=== PATIENT | male | born 1955 | race Caucasian/White ===

== ENCOUNTER 2024-01-19 13:12 | Inpatient (IN) | payer BC, MEDICARE, SELFPAY ==
[2024-01-19] VITALS (7 sets, daily range): BP systolic 132–152; BP diastolic 91–100; PULSE 72–80; RESP 16–19; TEMP 36.1–36.6; O2SAT 95–98; BMI 33.5; BMI 32.5
--- NOTE | 2024-01-19 13:27 | EDS_ITS ---
HPI <SELENA Nina - Last Filed: 01/19/24 15:31> History of Present Illness Chief Complaint: ETOH Intox Narrative Narrative: Patient is here for alcohol detox. His last drink was midnight on Monday, January 16. He typically drinks half a bottle of bourbon and 4-8 beers daily. He states he does not have symptoms of withdrawal yet but knows that it will get worse. He states he has done inpatient detox twice over the last year at [facility]. He has a chronic tremor which he states is familial but it might be a little bit worse today. He has no nausea, vomiting, diarrhea, chest pain or shortness of breath. No history of withdrawal seizures. He has extensive past medical history including HTN, HLD, DM2, DVT/PE on Eliquis, and aortic valve replacement. He denies smoking or recreational drug use. [facility] <SELENA Nina - Last Filed: 01/19/24 15:31> [facility] Medical History Alcohol abuse Aortic aneurysm CHF (congestive heart failure) COPD (chronic obstructive pulmonary disease) Diabetes Hernia Home Medications apixaban 5 mg tablet (Eliquis) 5 mg PO BID BLOOD THINNER 01/19/24 [History Last Taken 01/19/24] atorvastatin 40 mg tablet 40 mg PO QHS CHOLESTEROL 01/19/24 [History Last Taken 01/18/24] folic acid 1 mg tablet 1 mg PO DAILY SUPPLEMENT 01/19/24 [History Last Taken 01/19/24] furosemide 40 mg tablet 40 mg PO DAILY PRN FLUID RETENTION 01/19/24 [History Last Taken 01/19/24] glimepiride 4 mg tablet 4 mg PO BID BLOOD SUGAR 01/19/24 [History Last Taken 01/19/24] metformin 1,000 mg 24 hr tablet,extended release (gastric reten.) (Glumetza) 1,000 mg PO BID BLOOD SUGAR 01/19/24 [History Last Taken 01/19/24] metoprolol succinate 50 mg tablet,extended release 24 hr 50 mg PO BID BLOOD PRESSURE 01/19/24 [History Last Taken 01/19/24] Allergy/AdvReac Type Severity Reaction Status Date / Time No Known Allergies Allergy Verified 01/19/24 13:12 Surgical History Aortic valve replaced Social History Smoking Status: Former smoker ROS <SELENA Nina - Last Filed: 01/19/24 15:31> ROS ED ROS Narrative Constitutional: Negative for fever, chills, malaise. CVS: Negative for palpitations, chest pain, syncope. Respiratory: Negative for shortness of breath. GI: Negative for abdominal pain, nausea, vomiting, melena, hematochezia. EXAM <SELENA Nina - Last Filed: 01/19/24 15:31> Physical Exam Narrative Exam Narrative: CONST: Patient sitting in no acute distress. EYES: Normal inspection. NECK: Normal inspection. RESP: No respiratory distress, CTAB. CVS: Regular rate and rhythm, no murmur, no gallop. ABD: Soft and nontender, no guarding or rebound, nondistended. SKIN: Color normal, no rash, warm, dry, intact. EXTREMITIES: 3+ bilateral ankle edema, otherwise normal appearance of extremities. NEURO: Oriented x4. Mild fine tremor in extremities. PSYCH: Normal affect. Const Vital Signs: 01/19/24 13:13 01/19/24 13:12 01/19/24 13:26 Temperature 96.9 F L 98 F Temperature Source Temporal Axillary Pulse Rate 75 72 73 Respiratory Rate 16 18 19 H Blood Pressure 152/100 H 142/91 H 148/94 H Blood Pressure Mean 117 108 112 Pulse Ox 98 97 96 Oxygen Delivery Method Room Air Room Air Room Air <Dr. Guillermo Rae, DO - Last Filed: 01/19/24 16:43> Physical Exam Const Vital Signs: 01/19/24 13:13 01/19/24 13:12 01/19/24 13:26 Temperature 96.9 F L 98 F Temperature Source Temporal Axillary Pulse Rate 75 72 73 Respiratory Rate 16 18 19 H Blood Pressure 152/100 H 142/91 H 148/94 H Blood Pressure Mean 117 108 112 Pulse Ox 98 97 96 Oxygen Delivery Method Room Air Room Air Room Air MDM <SELENA Nina - Last Filed: 01/19/24 15:31> MDM MDM Narrative Medical decision making narrative: Patient is here for alcohol detox. Last drink about 36 hours ago, currently not symptomatic other than mild tremor. He appears well and nontoxic and is afebrile with normal vital signs. His cardiopulmonary exam is normal and abdomen is soft and nontender. He is neurologically intact. Labs show mild pancytopenia with WBC of 4.2, hemoglobin 12.7, platelet 75. Patient states he is aware he has CBC abnormalities and his primary care doctor has referred him to hematology. He has normal electrolytes and renal function. Glucose is 210 consistent with his diabetes. Total bilirubin is 3.3 but the rest of his LFTs are unremarkable. EKG is sinus rhythm with diffuse T wave inversions. Patient has no chest pain or shortness of breath and troponin is normal at 15. Alcohol and urine tox screens are negative. Patient remained stable while in the ED and case was discussed with the hospitalist for admission for alcohol detox. Lab Data Attestation: I reviewed the patient's lab results. Labs: Laboratory Results - last 24 hr 01/19/24 01/19/24 13:47 14:22 WBC 4.2 L RBC 3.82 L Hgb 12.7 L Hct 36.8 L MCV 96.3 H MCH 33.2 H MCHC 34.5 RDW Std Deviation 50.0 H RDW Coeff of Abraham 14.2 Plt Count 75 L MPV 10.3 Immature Gran % (Auto) 0.200 Neut % (Auto) 44.0 L Lymph % (Auto) 37.3 [place] % (Auto) 12.8 H Eos % (Auto) 4.3 Baso % (Auto) 1.4 H Absolute Neuts (auto) 1.8 L Absolute Lymphs (auto) 1.55 Nucleated RBC % 0 Platelet Estimate MOD DEC PT 23.9 H INR 2.2 Sodium 138 Potassium 3.7 Chloride 106 Carbon Dioxide 23.0 Anion Gap 9 BUN 9 Creatinine 0.84 Estim Creat Clear Calc 115.24 Est GFR (MDRD) Af Amer 117 Est GFR (MDRD) Non-Af 96 BUN/Creatinine Ratio 10.7 Glucose 210 H Calcium 8.6 Total Bilirubin 3.30 H AST 42 H ALT 40 Alkaline Phosphatase 97 Troponin I High Sens 15 Total Protein 7.0 Albumin 3.3 Globulin 3.7 Albumin/Globulin Ratio 0.9 Urine Opiates Screen NEGATIVE Urine Methadone Screen NEGATIVE Ur Barbiturates Screen NEGATIVE Ur Phencyclidine Scrn NEGATIVE Ur Amphetamines Screen NEGATIVE MDMA (Ecstasy) Screen NEGATIVE U Benzodiazepines Scrn NEGATIVE Urine Cocaine Screen NEGATIVE U Cannabinoids Screen NEGATIVE Ur Drug Screen Comment Ethyl Alcohol < 3.0 EKG Initial EKG: Comments: Normal sinus rhythm at 76 bpm Inverted T waves V2 through V6 No STEMI, no prior for comparison <Dr. Guillermo Rae, DO - Last Filed: 01/19/24 16:43> MDM MDM Narrative Medical decision making narrative: Patient is here for alcohol detox. Last drink about 36 hours ago, currently not symptomatic other than mild tremor. He appears well and nontoxic and is afebrile with normal vital signs. His cardiopulmonary exam is normal and abdomen is soft and nontender. He is neurologically intact. Labs show mild pancytopenia with WBC of 4.2, hemoglobin 12.7, platelet 75. Patient states he is aware he has CBC abnormalities and his primary care doctor has referred him to hematology. He has normal electrolytes and renal function. Glucose is 210 consistent with his diabetes. Total bilirubin is 3.3 but the rest of his LFTs are unremarkable. EKG is sinus rhythm with diffuse T wave inversions. Patient has no chest pain or shortness of breath and troponin is normal at 15. Alcohol and urine tox screens are negative. Patient remained stable while in the ED and case was discussed with the hospitalist for admission for alcohol detox. ED attending note: I evaluated the patient in conjunction with the CHUCK. I agree with his/her statements and above findings. I have personally performed a face to face assessment of the patient and have reviewed the CHUCK Note. I performed a substantive portion of the visit including all aspects of the following. I personally saw the patient performed chart review, physical exam, reviewed labs, imaging (if obtained), and formulated a treatment and management plan. This note was generated with [employer], Part of [employer] dictation software. It may contain incorrect words, spelling, and punctuation that were not noted in review of the chart prior to signing. Lab Data Labs: Laboratory Results - last 24 hr 01/19/24 01/19/24 13:47 14:22 WBC 4.2 L RBC 3.82 L Hgb 12.7 L Hct 36.8 L MCV 96.3 H MCH 33.2 H MCHC 34.5 RDW Std Deviation 50.0 H RDW Coeff of Abraham 14.2 Plt Count 75 L MPV 10.3 Immature Gran % (Auto) 0.200 Neut % (Auto) 44.0 L Lymph % (Auto) 37.3 [place] % (Auto) 12.8 H Eos % (Auto) 4.3 Baso % (Auto) 1.4 H Absolute Neuts (auto) 1.8 L Absolute Lymphs (auto) 1.55 Nucleated RBC % 0 Platelet Estimate MOD DEC PT 23.9 H INR 2.2 Sodium 138 Potassium 3.7 Chloride 106 Carbon Dioxide 23.0 Anion Gap 9 BUN 9 Creatinine 0.84 Estim Creat Clear Calc 115.24 Est GFR (MDRD) Af Amer 117 Est GFR (MDRD) Non-Af 96 BUN/Creatinine Ratio 10.7 Glucose 210 H Calcium 8.6 Total Bilirubin 3.30 H AST 42 H ALT 40 Alkaline Phosphatase 97 Troponin I High Sens 15 Total Protein 7.0 Albumin 3.3 Globulin 3.7 Albumin/Globulin Ratio 0.9 Urine Opiates Screen NEGATIVE Urine Methadone Screen NEGATIVE Ur Barbiturates Screen NEGATIVE Ur Phencyclidine Scrn NEGATIVE Ur Amphetamines Screen NEGATIVE MDMA (Ecstasy) Screen NEGATIVE U Benzodiazepines Scrn NEGATIVE Urine Cocaine Screen NEGATIVE U Cannabinoids Screen NEGATIVE Ur Drug Screen Comment Ethyl Alcohol < 3.0 Discharge Plan Dx/Rx/DC Orders Clinical Impression: Desire for detoxification, Alcohol abuse, Pancytopenia Disposition Disposition: Acute Care Hospital [facility] Discharge Date/Time: 01/19/24 16:05
--- NOTE | 2024-01-19 13:28 | ED.RN ---
NO OLD EKG
[2024-01-19 13:57] LABS: Absolute Lymphocyte Count 1.55 X10^3/uL (0.83-4.51); Absolute Neutrophil Count 1.8 X10^3/uL (2.0-7.7); Basophil# 0.06 X10^3/uL; Basophil% 1.4 % (0-1); Eosinophil# 0.18 X10^3/uL; Eosinophils% 4.3 % (0-5); Hematocrit 36.8 % (40-54); Hemoglobin 12.7 g/dL (13.0-16.5); Lymphocyte # 1.55 X10^3/ul (0.83-4.51); Lymphocyte % 37.3 % (19-41); Mean Corp Hgb Conc 34.5 g/dL (32-36); Mean Corpuscular Hgb 33.2 pg (27.0-32.0); Mean Corpuscular Volume 96.3 fL (80-94); Mean Platelet Vol. 10.3 fl (6.2-12.0); Monocyte# 0.53 X10^3/uL; Monocyte% 12.8 % (0-10); NRBC Flagged by Analyzer 0 % (0-5); Neutrophil # 1.82 X10^3/uL (2.7-7.7); POSITIVE COUNT YES; Platelet Count 75 K/mm3 (150-450); RBC Distribution Width CV 14.2 % (11.6-14.6); Red Blood Count 3.82 M/mm3 (4.6-6.2); White Blood Count 4.2 K/mm3 (4.4-11.0)
[2024-01-19 14:06] LABS: Alcohol, Blood (Medical)-Serum < 3.0 mg/dL
[2024-01-19 14:08] LABS: Differential Indicated SCAN CRITERIA MET
[2024-01-19 14:11] LABS: ALB/GLOB Ratio 0.9 RATIO (0.9-2.4); AST(SGOT) 42 U/L (15-37); Alanine Aminotransfer ALT/SGPT 40 U/L (16-61); Albumin, Serum 3.3 g/dL (3.2-5.0); Alkaline Phosphatase 97 U/L (45-117); Anion Gap 9 (5-15); BUN 9 mg/dL (7-18); BUN/Creat Ratio 10.7 RATIO (10-20); Calcium,Total 8.6 mg/dL (8.5-10.1); Chloride 106 mmol/L (98-107); Creatinine, Serum 0.84 mg/dL (0.70-1.30); EST Glomerular Filtration Rate 96 mL/min (>60); Est Glom Filt Rate - Afr Amer 117 mL/min (>60); Estimated Creatinine Clearance 115.24 ml/min; Globulin 3.7 g/dL (2.2-4.2); Glucose 210 mg/dL (74-106); Potassium 3.7 mmol/L (3.5-5.1); Sodium Level 138 mmol/L (136-145)
[2024-01-19 14:16] LABS: International Normalized Ratio 2.2; Prothrombin Time (Protime)PT. 23.9 SECONDS (11.7-14.9)
[2024-01-19 14:17] LABS: Troponin-I HS 15 pg/mL (3.0-78.0)
[2024-01-19 14:39] LABS: Amphetamine Urine VISTA NEGATIVE (<1000 ng/mL); Barbiturate Urine VISTA NEGATIVE (< 200 ng/mL); Benzodiazepine Urine VISTA NEGATIVE (< 200 ng/mL); Cocaine Urine VISTA NEGATIVE (< 300 ng/mL); Ecstacy Urine VISTA NEGATIVE (< 500 ng/mL); Methadone Urine VISTA NEGATIVE (< 300 ng/mL); PCP Urine VISTA NEGATIVE (< 25 ng/mL); THC Urine VISTA NEGATIVE (< 50 ng/mL); Vista UDS pH Range 7
[2024-01-19 14:46] LABS: Platelet Estimate MOD DEC (ADEQ)
--- NOTE | 2024-01-19 15:04 | HP.PCM.HOS_ITS ---
HPI - General HPI Narrative NIKHIL CALLE, is a 68 M who presents [facility] Medical History Alcohol abuse Aortic aneurysm CHF (congestive heart failure) COPD (chronic obstructive pulmonary disease) Diabetes Hernia Home Medications apixaban 5 mg tablet (Eliquis) 5 mg PO BID 01/19/24 [History Last Taken Unknown] atorvastatin 40 mg tablet 40 mg PO DAILY 01/19/24 [History Last Taken Unknown] furosemide 40 mg tablet 40 mg PO DAILY 01/19/24 [History Last Taken Unknown] glimepiride 4 mg tablet 4 mg PO BID 01/19/24 [History Last Taken Unknown] metformin 1,000 mg 24 hr tablet,extended release (gastric reten.) (Glumetza) 1,000 mg PO BID 01/19/24 [History Last Taken Unknown] metoprolol succinate 50 mg tablet,extended release 24 hr 50 mg PO BID 01/19/24 [History Last Taken Unknown] Allergy/AdvReac Type Severity Reaction Status Date / Time No Known Allergies Allergy Verified 01/19/24 13:12 Surgical History (Updated 01/19/24 @ 13:44 by Magdaleno Chirinos) Aortic valve replaced Social History Smoking Status: Never smoker Vital Signs Vital Signs Vital Signs: 01/19/24 13:13 01/19/24 13:12 01/19/24 13:26 Temperature 96.9 F L 98 F Temperature Source Temporal Axillary Pulse Rate 75 72 73 Respiratory Rate 16 18 19 H Blood Pressure 152/100 H 142/91 H 148/94 H Blood Pressure Mean 117 108 112 Pulse Ox 98 97 96 Oxygen Delivery Method Room Air Room Air Room Air Weight Weight: 261 lb 11.019 oz Body Mass Index (BMI) 33.5 Results Lab / Micro Data 01/19/24 13:47 01/19/24 13:47 Labs: Laboratory Results - last 24 hr 01/19/24 13:47: WBC 4.2 L, RBC 3.82 L, Hgb 12.7 L, Hct 36.8 L, MCV 96.3 H, MCH 33.2 H, MCHC 34.5, RDW Std Deviation 50.0 H, RDW Coeff of Abraham 14.2, Plt Count 75 L, MPV 10.3, Immature Gran % (Auto) 0.200, Neut % (Auto) 44.0 L, Lymph % (Auto) 37.3, Trigg % (Auto) 12.8 H, Eos % (Auto) 4.3, Baso % (Auto) 1.4 H, Absolute Neuts (auto) 1.8 L, Absolute Lymphs (auto) 1.55, Nucleated RBC % 0, Platelet Estimate MOD DEC, PT 23.9 H, INR 2.2, Sodium 138, Potassium 3.7, Chloride 106, Carbon Dioxide 23.0, Anion Gap 9, BUN 9, Creatinine 0.84, Estim Creat Clear Calc 115.24, Est GFR (MDRD) Af Amer 117, Est GFR (MDRD) Non-Af 96, BUN/Creatinine Ratio 10.7, Glucose 210 H, Calcium 8.6, Total Bilirubin 3.30 H, AST 42 H, ALT 40, Alkaline Phosphatase 97, Troponin I High Sens 15, Total Protein 7.0, Albumin 3.3, Globulin 3.7, Albumin/Globulin Ratio 0.9, Ethyl Alcohol < 3.0 01/19/24 14:22: Urine Opiates Screen NEGATIVE, Urine Methadone Screen NEGATIVE, Ur Barbiturates Screen NEGATIVE, Ur Phencyclidine Scrn NEGATIVE, Ur Amphetamines Screen NEGATIVE, MDMA (Ecstasy) Screen NEGATIVE, U Benzodiazepines Scrn NEGATIVE, Urine Cocaine Screen NEGATIVE, U Cannabinoids Screen NEGATIVE, Ur Drug Screen Comment Assessment & Plan Assessment/Plan PLAN: Plan Laboratory Results 01/19/24 13:47: WBC 4.2 L, RBC 3.82 L, Hgb 12.7 L, Hct 36.8 L, MCV 96.3 H, MCH 33.2 H, MCHC 34.5, RDW Std Deviation 50.0 H, RDW Coeff of Abraham 14.2, Plt Count 75 L, MPV 10.3, Immature Gran % (Auto) 0.200, Neut % (Auto) 44.0 L, Lymph % (Auto) 37.3, Trigg % (Auto) 12.8 H, Eos % (Auto) 4.3, Baso % (Auto) 1.4 H, Absolute Neuts (auto) 1.8 L, Absolute Lymphs (auto) 1.55, Nucleated RBC % 0, Platelet Estimate MOD DEC, PT 23.9 H, INR 2.2, Sodium 138, Potassium 3.7, Chloride 106, Carbon Dioxide 23.0, Anion Gap 9, BUN 9, Creatinine 0.84, Estim Creat Clear Calc 115.24, Est GFR (MDRD) Af Amer 117, Est GFR (MDRD) Non-Af 96, BUN/Creatinine Ratio 10.7, Glucose 210 H, Calcium 8.6, Total Bilirubin 3.30 H, AST 42 H, ALT 40, Alkaline Phosphatase 97, Troponin I High Sens 15, Total Protein 7.0, Albumin 3.3, Globulin 3.7, Albumin/Globulin Ratio 0.9, Ethyl Alcohol < 3.0 01/19/24 14:22: Urine Opiates Screen NEGATIVE, Urine Methadone Screen NEGATIVE, Ur Barbiturates Screen NEGATIVE, Ur Phencyclidine Scrn NEGATIVE, Ur Amphetamines Screen NEGATIVE, MDMA (Ecstasy) Screen NEGATIVE, U Benzodiazepines Scrn NEGATIVE, Urine Cocaine Screen NEGATIVE, U Cannabinoids Screen NEGATIVE, Ur Drug Screen Comment
--- NOTE | 2024-01-19 15:04 | PCM.HP.STD ---
HPI - General General Date of Admission: 01/19/24 Date of Service: 01/19/24 Chief Complaint: Chronic alcohol use disorder moderate HPI Narrative NIKHIL REAL, is a 68 M with history of chronic heart disease came to ED for mild alcohol withdrawal symptoms and wants medical stabilization. Patient is states he drinks one third of the bottle of whiskey and 4-8 bottles of beer on average day. He said he did not drink from October 72 December 29, 2023 and then he started drinking again. Patient has mild tremors otherwise does not feel anxiety or panic attack or nausea vomiting muscle cramps. He had aortic valve replacement, open heart surgery. He stated he also had abdominal aortic aneurysm. He was admitted couple months ago outside and was told that he has blood clot in the leg and pneumonia therefore he is on Eliquis 5 mg twice daily Labs reviewed. Patient has thrombocytopenia, in fact pancytopenia and has often appointment with quality improvement manager outside [facility] Medical History Alcohol abuse Aortic aneurysm CHF (congestive heart failure) COPD (chronic obstructive pulmonary disease) Diabetes Hernia Home Medications apixaban 5 mg tablet (Eliquis) 5 mg PO BID BLOOD THINNER 01/19/24 [History Last Taken 01/19/24] atorvastatin 40 mg tablet 40 mg PO QHS CHOLESTEROL 01/19/24 [History Last Taken 01/18/24] folic acid 1 mg tablet 1 mg PO DAILY SUPPLEMENT 01/19/24 [History Last Taken 01/19/24] furosemide 40 mg tablet 40 mg PO DAILY PRN FLUID RETENTION 01/19/24 [History Last Taken 01/19/24] glimepiride 4 mg tablet 4 mg PO BID BLOOD SUGAR 01/19/24 [History Last Taken 01/19/24] metformin 1,000 mg 24 hr tablet,extended release (gastric reten.) (Glumetza) 1,000 mg PO BID BLOOD SUGAR 01/19/24 [History Last Taken 01/19/24] metoprolol succinate 50 mg tablet,extended release 24 hr 50 mg PO BID BLOOD PRESSURE 01/19/24 [History Last Taken 01/19/24] Allergy/AdvReac Type Severity Reaction Status Date / Time No Known Allergies Allergy Verified 01/19/24 13:12 Surgical History Aortic valve replaced Social History Smoking Status: Never smoker ROS ROS Narrative Constitutional: Reports fatigue and weakness. No fever. HEENT: Reports systems reviewed and no addt'l complaints, except as documented Respiratory/Chest: COPD with chronic secondary to smoking. No acute shortness of breath or respiratory distress or wheezing. CVS: No acute chest pain or shortness of breath Gastrointestinal: Bowel movement regular. Denies coffee ground emesis, hematemesis or vomiting Genitourinary: Denies burning urination or new urinary tract symptoms Musculoskeletal: Bilateral lower extremity swelling. Denies acute joint pain or limited range of motion. No acute injury Neurologic: Denies seizure-like symptoms. skin: No ulcer. No rash Endocrinology: Reports systems reviewed and no addt'l complaints, except as documented Hematologic/Lymphatic: Reports systems reviewed and no addt'l complaints, except as documented Rest 14 ROS are negative except as mentioned in HPI Vital Signs Vital Signs Vital Signs: 01/19/24 13:13 01/19/24 13:12 01/19/24 13:26 Temperature 96.9 F L 98 F Temperature Source Temporal Axillary Pulse Rate 75 72 73 Respiratory Rate 16 18 19 H Blood Pressure 152/100 H 142/91 H 148/94 H Blood Pressure Mean 117 108 112 Pulse Ox 98 97 96 Oxygen Delivery Method Room Air Room Air Room Air Weight Weight: 261 lb 11.019 oz Body Mass Index (BMI) 33.5 Physical Exam Narrative General: Alert, Oriented x3, Cooperative. BMI 33.6 kg/m? HEENT: Atraumatic, PERRLA, EOMI, Normocephalic Oral: Oral mucosa dry. No Gingival or Mucosal Lesions/ Ulcerations Neck: Supple, No JVD, Negative Carotid Bruits Chest wall/Lungs: Air entry diminished in bilateral lung bases. No crepitation/rhonchi Cardiovascular: Regular rate, Regular Rhythm, Normal S1, Normal S2, No M/G/R Abdomen: Bowel Sounds Present, Soft, Non Tender, Non-Distended : No dysuria. No renal angle tenderness. No suprapubic tenderness. Extremities: Bilateral 3+ lower extremity edema, Capillary Refill Less than 3 Seconds Skin: No rashes, No breakdown Musculoskeletal: No Tenderness to Palpation of Joints or Extremities Neurological: Cranial nerves II-XII grossly intact, DTR 2+/4. No acute focal neurological deficit. Psych/Mental Status: Flat. Results Lab / Micro Data 01/19/24 13:47 01/19/24 13:47 Labs: Laboratory Results - last 24 hr 01/19/24 13:47: WBC 4.2 L, RBC 3.82 L, Hgb 12.7 L, Hct 36.8 L, MCV 96.3 H, MCH 33.2 H, MCHC 34.5, RDW Std Deviation 50.0 H, RDW Coeff of Abraham 14.2, Plt Count 75 L, MPV 10.3, Immature Gran % (Auto) 0.200, Neut % (Auto) 44.0 L, Lymph % (Auto) 37.3, [place] % (Auto) 12.8 H, Eos % (Auto) 4.3, Baso % (Auto) 1.4 H, Absolute Neuts (auto) 1.8 L, Absolute Lymphs (auto) 1.55, Nucleated RBC % 0, Platelet Estimate MOD DEC, PT 23.9 H, INR 2.2, Sodium 138, Potassium 3.7, Chloride 106, Carbon Dioxide 23.0, Anion Gap 9, BUN 9, Creatinine 0.84, Estim Creat Clear Calc 115.24, Est GFR (MDRD) Af Amer 117, Est GFR (MDRD) Non-Af 96, BUN/Creatinine Ratio 10.7, Glucose 210 H, Calcium 8.6, Total Bilirubin 3.30 H, AST 42 H, ALT 40, Alkaline Phosphatase 97, Troponin I High Sens 15, Total Protein 7.0, Albumin 3.3, Globulin 3.7, Albumin/Globulin Ratio 0.9, Ethyl Alcohol < 3.0 01/19/24 14:22: Urine Opiates Screen NEGATIVE, Urine Methadone Screen NEGATIVE, Ur Barbiturates Screen NEGATIVE, Ur Phencyclidine Scrn NEGATIVE, Ur Amphetamines Screen NEGATIVE, MDMA (Ecstasy) Screen NEGATIVE, U Benzodiazepines Scrn NEGATIVE, Urine Cocaine Screen NEGATIVE, U Cannabinoids Screen NEGATIVE, Ur Drug Screen Comment Assessment & Plan Assessment/Plan (1) Acute hyperactive alcohol withdrawal delirium: PLAN: Plan This 60-year-old gentleman came to ED to help from medical establishment chronic alcohol use dependence 1. Acute alcohol withdrawal syndrome with history of chronic alcohol use dependence and tolerance: Patient is being admitted to MedSurg floor. Patient on phenobarbital based order set along with other adjunctive medications gabapentin, Bentyl, Vistaril, clonidine, Klonopin as needed for alcohol withdrawal symptom control. Patient is on thiamine and folate acid. CIWA monitor. graphic manager consulted. Patient has abnormal liver test including total bilirubin 3.3 AST 42 since most likely chronic alcoholic hepatitis. Direct bilirubin ordered. RUQ Limited ultrasound ordered 2. Bilateral lower extremity swelling with history of aortic valve replacement and abdominal aortic aneurysm: Lasix 40 mg IV now and continue home Lasix 40 g daily. Continue metoprolol succinate. 3. Diabetes mellitus type 2: Patient on metformin and glimepiride at home. Held. Accu-Cheks and cover with sliding scale. Glucose in BMP is 210. Started on Lantus 10 units daily at bedtime. 4. Dyslipidemia: Atorvastatin 40 mg daily at bedtime. 5. History of DVT: Continue Eliquis but dose decreased because of severe thrombocytopenia platelet count 75,000. 6. Predominant thrombocytopenia but mild leukopenia and macrocytic chronic anemia: B12 and folic acid ordered. Rest admission. Patient has outside office appointment to see quality improvement manager. Living will/advanced directive/end of life care: Patient does not living will or advanced directive. His daughter Mrs. Neeta Real is power of insurance attorney for his health. After discussion of benefits/risks procedures involved with full code, DNR CC arrest and DNR CC, the patient opted for DNR CC arrest with no intubation Patient doesn't want artificial life support including intubation, tube feed, ventilator and/chest compression, central venous catheter, vasopressor and DC shock if needed Total time spent in [id number] encounter in discussion of advanced directive 17 minutes. Laboratory Results 01/19/24 13:47: WBC 4.2 L, RBC 3.82 L, Hgb 12.7 L, Hct 36.8 L, MCV 96.3 H, MCH 33.2 H, MCHC 34.5, RDW Std Deviation 50.0 H, RDW Coeff of Abraham 14.2, Plt Count 75 L, MPV 10.3, Immature Gran % (Auto) 0.200, Neut % (Auto) 44.0 L, Lymph % (Auto) 37.3, [place]born % (Auto) 12.8 H, Eos % (Auto) 4.3, Baso % (Auto) 1.4 H, Absolute Neuts (auto) 1.8 L, Absolute Lymphs (auto) 1.55, Nucleated RBC % 0, Platelet Estimate MOD DEC, PT 23.9 H, INR 2.2, Sodium 138, Potassium 3.7, Chloride 106, Carbon Dioxide 23.0, Anion Gap 9, BUN 9, Creatinine 0.84, Estim Creat Clear Calc 115.24, Est GFR (MDRD) Af Amer 117, Est GFR (MDRD) Non-Af 96, BUN/Creatinine Ratio 10.7, Glucose 210 H, Calcium 8.6, Total Bilirubin 3.30 H, AST 42 H, ALT 40, Alkaline Phosphatase 97, Troponin I High Sens 15, Total Protein 7.0, Albumin 3.3, Globulin 3.7, Albumin/Globulin Ratio 0.9, Ethyl Alcohol < 3.0 01/19/24 14:22: Urine Opiates Screen NEGATIVE, Urine Methadone Screen NEGATIVE, Ur Barbiturates Screen NEGATIVE, Ur Phencyclidine Scrn NEGATIVE, Ur Amphetamines Screen NEGATIVE, MDMA (Ecstasy) Screen NEGATIVE, U Benzodiazepines Scrn NEGATIVE, Urine Cocaine Screen NEGATIVE, U Cannabinoids Screen NEGATIVE, Ur Drug Screen Comment Charges/Coding Visit Charges Inpatient E&M: 83462 Init Hosp L3 Procedures Hospitalists Procedures: 76320 Advncd Care Plan 30 Min
[2024-01-19] MEDS: Furosemide 40 MG/4 ML Vial IV (15:37)
[2024-01-19 16:47] LABS: Bilirubin, Direct 0.48 mg/dL (0.00-0.30)
[2024-01-19] MEDS: Phenobarbital 32.4 MG Tablet 64.8 MG PO ×2 (16:58→20:34)
[2024-01-19] MEDS: Insulin Lispro 100 UNIT/ML INSULN.PEN SC ×2 (16:58→20:44)
[2024-01-19 17:11] LABS: Vitamin B12 301 pg/mL (211-911)
[2024-01-19 17:20] LABS: Bedside Glucose 194 mg/dL (74-106)
[2024-01-19] MEDS: APIXABAN 2.5 MG TABLET (WCH) PO (20:35)
[2024-01-19] MEDS: Metoprolol(XL)Succ 50 MG Tablet PO (20:39)
[2024-01-19] MEDS: Insulin Glargine-YFGN 100 UNIT/ML Pen 10 UNIT SC (20:43)
[2024-01-19 22:24] LABS: Bedside Glucose 291 mg/dL (74-106)
[2024-01-20] VITALS (8 sets, daily range): BP systolic 107–145; BP diastolic 48–97; PULSE 65–80; RESP 16–18; TEMP 36.6–37; O2SAT 95–98
[2024-01-20] MEDS: Phenobarbital 32.4 MG Tablet 64.8 MG PO ×6 (00:36→19:58)
--- NOTE | 2024-01-20 05:55 | US_ITS ---
STUDY: ABDOMINAL ULTRASOUND - RIGHT UPPER QUADRANT REASON FOR VISIT: Male, 68 years old Alcoholic hepatitis total bilirubin elevated TECHNIQUE: Ultrasound evaluation of the right upper quadrant was performed with real-time and static rowley-scale imaging. TECHNICAL QUALITY: Limited. Examination limited due to a combination of factors including obesity and bowel gas. COMPARISON: None. FINDINGS: Liver: The liver measures 14.9 cm. There is increased echogenicity consistent with fatty infiltration. Question a nodular surface pattern suggestive of cirrhosis. The bile ducts are within normal limits. There is hepatic color flow. The direction of portal flow is hepatopetal. There is no demonstrated mass lesion. Gallbladder: Normal distended gallbladder. The gallbladder wall measures 2 mm. There is a negative sonographic Rosales''s sign. There is no pericholecystic fluid. There are no gallstones. Common Bile Duct (C.B.D.): The common bile duct measures 3 mm. Pancreas: Normal size of the head, body and tail of the pancreas. There is normal echogenicity of the pancreas. There is no demonstrated pancreatic mass or cyst. Right Kidney: Normal size of the right kidney. The right kidney measures 11.1 cm. Normal renal cortex. The right cortex measures 1.4 cm. Probable 1.2 cm cyst. There is no right hydronephrosis. US/Abdomen Limited IMPRESSION: Limited as above. Question cirrhosis and fatty liver. No other definite acute or significant abnormality seen. Electronically Signed: Noah Alves MD at 19:51 EDT ,
[2024-01-20] MEDS: Insulin Lispro 100 UNIT/ML INSULN.PEN SC ×4 (06:16→20:01)
[2024-01-20 07:09] LABS: Bedside Glucose 156 mg/dL (74-106)
--- NOTE | 2024-01-20 08:02 | PCM.PN.HOSP ---
Reason for Visit Reason for Visit: Diagnoses Alcohol use, unspecified with withdrawal delirium (01/19/24) Subjective Subjective Patient is a 68-year-old gentleman with history of chronic alcohol dependence admitted with acute alcohol withdrawal Objective Data Objective Data Vital Signs: Vital Signs Temp Pulse Resp BP Pulse Ox O2 Del Method 98 F 65 16 139/92 H 97 Room Air 01/20/24 04:40 01/20/24 04:40 01/20/24 04:40 01/20/24 04:40 01/20/24 04:40 01/20/24 04:40 Oxygen Delivery Method Room Air Weight: 115.212 kg Body Mass Index (BMI) 32.5 Lab / Micro Data 01/19/24 13:47 01/19/24 13:47 Labs: Laboratory Results - last 24 hr 01/19/24 13:47: WBC 4.2 L, RBC 3.82 L, Hgb 12.7 L, Hct 36.8 L, MCV 96.3 H, MCH 33.2 H, MCHC 34.5, RDW Std Deviation 50.0 H, RDW Coeff of Abraham 14.2, Plt Count 75 L, MPV 10.3, Immature Gran % (Auto) 0.200, Neut % (Auto) 44.0 L, Lymph % (Auto) 37.3, [place] % (Auto) 12.8 H, Eos % (Auto) 4.3, Baso % (Auto) 1.4 H, Absolute Neuts (auto) 1.8 L, Absolute Lymphs (auto) 1.55, Nucleated RBC % 0, Platelet Estimate MOD DEC, PT 23.9 H, INR 2.2, Sodium 138, Potassium 3.7, Chloride 106, Carbon Dioxide 23.0, Anion Gap 9, BUN 9, Creatinine 0.84, Estim Creat Clear Calc 115.24, Est GFR (MDRD) Af Amer 117, Est GFR (MDRD) Non-Af 96, BUN/Creatinine Ratio 10.7, Glucose 210 H, Calcium 8.6, Total Bilirubin 3.30 H, Direct Bilirubin 0.48 H, AST 42 H, ALT 40, Alkaline Phosphatase 97, Troponin I High Sens 15, Total Protein 7.0, Albumin 3.3, Globulin 3.7, Albumin/Globulin Ratio 0.9, Vitamin B12 301, Ethyl Alcohol < 3.0 01/19/24 14:22: Urine Opiates Screen NEGATIVE, Urine Methadone Screen NEGATIVE, Ur Barbiturates Screen NEGATIVE, Ur Phencyclidine Scrn NEGATIVE, Ur Amphetamines Screen NEGATIVE, MDMA (Ecstasy) Screen NEGATIVE, U Benzodiazepines Scrn NEGATIVE, Urine Cocaine Screen NEGATIVE, U Cannabinoids Screen NEGATIVE, Ur Drug Screen Comment 01/19/24 16:53: POC Glucose 194 H 01/19/24 20:42: POC Glucose 291 H 01/20/24 05:35: Folate 19.70 01/20/24 06:15: POC Glucose 156 H Physical Exam Narrative GENERAL: cooperative HEENT: Atraumatic; normocephalic EYES; Anicteric, Normal Conjunctiva NECK; supple, normal thyroid, RESPIRATORY: Diminished to auscultation CARDIOVASCULAR: Regular S1 S2, systolic murmur GI: soft, normoactive bowel sounds, : No Renal angle tenderness; EXTREMITIES: No edema, no clubbing, MUSCULOSKELETAL: no muscle wasting NEURO: Awake; no lateralizing signs. SKIN: No Rash PSYCH; Flat affect Assessment & Plan Assessment/Plan (1) Acute hyperactive alcohol withdrawal delirium: PLAN: Plan Patient is a 68-year-old gentleman with history of chronic alcohol dependence admitted with acute alcohol withdrawal 1. Acute alcohol withdrawal ? In a patient with chronic alcohol dependence. Admitted to regular nursing floor started on phenobarb taper in addition to adjuvant medications for hissymptoms 2. Abnormal liver test with elevated bilirubin ? Right upper quadrant ultrasound ordered. Ordered repeat LFTs in a.m. 3. Valvular heart disease ? With history of aortic stenosis patient is scheduled to undergo TAVR at [facility] 4. Diabetes mellitus type II -patient's oral hypoglycemics held. Placed on long acting insulin, Accu-Cheks a.c. and at bedtime and covered with sliding scale insulin 5. VTE ? With recent PE and DVT diagnosed at an outside hospital patient is on systemic anticoagulation with apixaban 6. Dyslipidemia -Patient is on statin therapy, continued at home dose 7. Thrombocytopenia ? Suspected to be secondary to chronic alcohol dependence, CBC with differential ordered for monitoring 8. DVT prophylaxis ? Patient is on apixaban Time spent in the patient's overall evaluation,decision-making process, review of diagnostic data, adjustment of management, discussion with other providers, nursing nursing and ancillary staff involved in patient's care documentation, 50 Minutes Charges/Coding Visit Charges Inpatient E&M: 10528 Subs Hosp L3
[2024-01-20] MEDS: APIXABAN 2.5 MG TABLET (WCH) PO ×2 (08:19→19:58)
[2024-01-20] MEDS: Furosemide 40 MG Tablet PO (08:19)
[2024-01-20] MEDS: Folic Acid 1 MG Tablet PO (08:20)
[2024-01-20] MEDS: Metoprolol(XL)Succ 50 MG Tablet PO ×2 (08:20→19:57)
[2024-01-20] MEDS: Thiamine Hydrochloride 100 MG Tablet PO (08:20)
[2024-01-20] MEDS: Atorvastatin Calcium 40 MG Tablet PO (08:22)
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
[2024-01-20 12:39] LABS: Bedside Glucose 157 mg/dL (74-106)
--- NOTE | 2024-01-20 15:52 | CASEMGMT ---
Social Work Pt informed admitting RN he does have LW/POA, however not able to bring in the documents. Neeta Real is pt's healthcare POA. LIANE Jennings
[2024-01-20 17:08] LABS: Bedside Glucose 288 mg/dL (74-106)
[2024-01-20] MEDS: traZODone 100 MG Tablet PO (19:58)
[2024-01-20] MEDS: Insulin Glargine-YFGN 100 UNIT/ML Pen 10 UNIT SC (20:01)
[2024-01-20 20:47] LABS: Bedside Glucose 264 mg/dL (74-106)
--- NOTE | 2024-01-20 21:00 | EKG12_ITS ---
Test Reason : DIZZY, HEART PALPITATIONS Blood Pressure : / mmHG Vent. Rate : 071 BPM Atrial Rate : 071 BPM P-R Int : 184 ms QRS Dur : 102 ms QT Int : 470 ms P-R-T Axes : 043 075 230 degrees QTc Int : 510 ms Normal sinus rhythm ST & Marked T wave abnormality, consider anterolateral ischemia Prolonged QT Abnormal ECG Confirmed by Jv Marion ([id number]), editor magazine JUAN DANIEL MIKE ([id number]) on 01/22/2024 1:21:12 PM Referred By: KIRK Confirmed By:Jv Marion
--- NOTE | 2024-01-20 21:11 | NURSING ---
Addendum entered by Sridhar Cornejo 01/20/24 21:18: 2045 time of event Original Note: Pt laying in bed, complaining of dizziness and heart racing. No chest pain. EKG and vitals obtained. Instructed pt to stay in bed and not get up without help while he's feeling like this. Will notify provider.
[2024-01-21] VITALS (7 sets, daily range): BP systolic 110–142; BP diastolic 72–87; PULSE 69–86; RESP 14–19; TEMP 36.5–37.2; O2SAT 96–99
[2024-01-21] MEDS: Phenobarbital 32.4 MG Tablet 64.8 MG PO ×6 (00:04→20:09)
--- NOTE | 2024-01-21 07:10 | PN.HOSP_ITS ---
Reason for Visit Reason for Visit: Diagnoses Alcohol use, unspecified with withdrawal delirium (01/19/24) Subjective Subjective Patient seen more tremulous compared to the day prior. Remains on the phenobarb taper Objective Data Objective Data Vital Signs: Vital Signs Temp Pulse Resp BP Pulse Ox O2 Del Method 98.1 F 69 14 118/83 H 96 Room Air 01/21/24 04:00 01/21/24 04:00 01/21/24 04:00 01/21/24 04:00 01/21/24 04:00 01/21/24 04:00 Oxygen Delivery Method Room Air Weight: 115.212 kg Body Mass Index (BMI) 32.5 Intake & Output: Intake and Output for Last 24 Hours 01/19/24 01/20/24 01/21/24 23:59 23:59 23:59 Intake Total 600 / 600 Balance 600 / 600 Lab / Micro Data 01/21/24 05:55 01/19/24 13:47 Labs: Laboratory Results - last 24 hr 01/20/24 12:10: POC Glucose 157 H 01/20/24 16:44: POC Glucose 288 H 01/20/24 19:59: POC Glucose 264 H Radiography Diagnostic Testing: Radiology Impression Abdomen Ultrasound 01/20/24 05:55 IMPRESSION: Limited as above. Question cirrhosis and fatty liver. No other definite acute or significant abnormality seen. Electronically Signed: Noah Alves MD at 19:51 EDT , Physical Exam Narrative GENERAL: cooperative, tremulous at rest HEENT: Atraumatic; normocephalic EYES; Anicteric, Normal Conjunctiva NECK; supple, normal thyroid, RESPIRATORY: Diminished to auscultation CARDIOVASCULAR: Regular S1 S2, systolic murmur GI: soft, normoactive bowel sounds, : No Renal angle tenderness; EXTREMITIES: No edema, no clubbing, MUSCULOSKELETAL: no muscle wasting NEURO: Awake; no lateralizing signs. SKIN: No Rash PSYCH; Flat affect Assessment & Plan Assessment/Plan (1) Acute hyperactive alcohol withdrawal delirium: PLAN: Plan Patient is a 68-year-old gentleman with history of chronic alcohol dependence admitted with acute alcohol withdrawal 1. Acute alcohol withdrawal ? In a patient with chronic alcohol dependence. Admitted to regular nursing floor started on phenobarb taper in addition to adjuvant medications for his symptoms ? 01/21/2024; patient more tremulous compared to the day prior. Remains on the phenobarb taper 2. Abnormal liver test with elevated bilirubin ? Right upper quadrant ultrasound ordered. Ordered repeat LFTs in a.m. ? 01/21/2024 right upper quadrant ultrasound demonstrated features consistent with cirrhosis and fatty liver no other acute or significant abnormality seen 3. Valvular heart disease ? With history of aortic stenosis patient is scheduled to undergo TAVR at [facility] 4. Diabetes mellitus type II -patient's oral hypoglycemics held. Placed on long acting insulin, Accu-Cheks a.c. and at bedtime and covered with sliding scale insulin 5. VTE ? With recent PE and DVT diagnosed at an outside hospital patient is on systemic anticoagulation with apixaban 6. Dyslipidemia -Patient is on statin therapy, continued at home dose 7. Thrombocytopenia ? Suspected to be secondary to chronic alcohol dependence, CBC with differential ordered for monitoring 8. DVT prophylaxis ? Patient is on apixaban Time spent in the patient's overall evaluation,decision-making process, review of diagnostic data, adjustment of management, discussion with other providers, nursing nursing and ancillary staff involved in patient's care documentation, 35 Minutes Charges/Coding Visit Charges Inpatient E&M: 39468 [facility] Hosp L2
[2024-01-21 07:21] LABS: Absolute Lymphocyte Count 1.27 X10^3/uL (0.83-4.51); Absolute Neutrophil Count 1.2 X10^3/uL (2.0-7.7); Basophil# 0.06 X10^3/uL; Basophil% 1.9 % (0-1); Eosinophil# 0.16 X10^3/uL; Eosinophils% 5.1 % (0-5); Hematocrit 35.1 % (40-54); Hemoglobin 12.2 g/dL (13.0-16.5); Lymphocyte # 1.27 X10^3/ul (0.83-4.51); Lymphocyte % 40.4 % (19-41); Mean Corp Hgb Conc 34.8 g/dL (32-36); Mean Corpuscular Hgb 33.3 pg (27.0-32.0); Mean Corpuscular Volume 95.9 fL (80-94); Mean Platelet Vol. 10.8 fl (6.2-12.0); Monocyte# 0.45 X10^3/uL; Monocyte% 14.3 % (0-10); NRBC Flagged by Analyzer 0 % (0-5); Neutrophil # 1.19 X10^3/uL (2.7-7.7); POSITIVE COUNT YES; Platelet Count 80 K/mm3 (150-450); RBC Distribution Width CV 13.7 % (11.6-14.6); Red Blood Count 3.66 M/mm3 (4.6-6.2); White Blood Count 3.1 K/mm3 (4.4-11.0)
[2024-01-21 07:59] LABS: AST(SGOT) 29 U/L (15-37); Alanine Aminotransfer ALT/SGPT 30 U/L (16-61); Albumin, Serum 2.9 g/dL (3.2-5.0); Alkaline Phosphatase 81 U/L (45-117); Anion Gap 6 (5-15); BUN 12 mg/dL (7-18); BUN/Creat Ratio 18.1 RATIO (10-20); Bilirubin, Direct 0.45 mg/dL (0.00-0.30); Calcium,Total 8.5 mg/dL (8.5-10.1); Chloride 106 mmol/L (98-107); Creatinine, Serum 0.66 mg/dL (0.70-1.30); EST Glomerular Filtration Rate 127 mL/min (>60); Est Glom Filt Rate - Afr Amer 153 mL/min (>60); Estimated Creatinine Clearance 119.26 ml/min; Globulin 3.3 g/dL (2.2-4.2); Glucose 240 mg/dL (74-106); Magnesium 1.4 mg/dL (1.6-2.6); Phosphorus 3.7 mg/dL (2.5-4.9); Potassium 3.2 mmol/L (3.5-5.1); Protein, Total 6.2 g/dL (6.4-8.2); Sodium Level 139 mmol/L (136-145)
[2024-01-21] MEDS: Furosemide 40 MG Tablet PO (08:09)
[2024-01-21] MEDS: Folic Acid 1 MG Tablet PO (08:09)
[2024-01-21] MEDS: Metoprolol(XL)Succ 50 MG Tablet PO ×2 (08:10→20:09)
[2024-01-21] MEDS: Thiamine Hydrochloride 100 MG Tablet PO (08:10)
[2024-01-21] MEDS: Atorvastatin Calcium 40 MG Tablet PO (08:11)
[2024-01-21] MEDS: APIXABAN 2.5 MG TABLET (WCH) PO ×2 (08:12→20:10)
[2024-01-21] MEDS: Insulin Lispro 100 UNIT/ML INSULN.PEN SC ×4 (08:14→21:49)
[2024-01-21] MEDS: Insulin Glargine-YFGN 100 UNIT/ML Pen 10 UNIT SC ×2 (08:15→17:42)
[2024-01-21 08:47] LABS: Bedside Glucose 192 mg/dL (74-106)
[2024-01-21] MEDS: Magnesium Chloride 64 MG Delay Rel.Tablet 128 MG PO ×2 (13:40→20:11)
[2024-01-21] MEDS: 0.9% Saline Lock 10 ML Syringe IV (13:51)
[2024-01-21 14:16] LABS: Bedside Glucose 332 mg/dL (74-106)
[2024-01-21 18:11] LABS: Bedside Glucose 360 mg/dL (74-106)
[2024-01-21 22:10] LABS: Bedside Glucose 295 mg/dL (74-106)
[2024-01-22] MEDS: Phenobarbital 32.4 MG Tablet 64.8 MG PO ×2 (00:11→06:15)
[2024-01-22 06:24] LABS: Absolute Lymphocyte Count 1.41 X10^3/uL (0.83-4.51); Absolute Neutrophil Count 1.1 X10^3/uL (2.0-7.7); Basophil# 0.04 X10^3/uL; Basophil% 1.3 % (0-1); Eosinophil# 0.16 X10^3/uL; Eosinophils% 5.1 % (0-5); Hematocrit 37.3 % (40-54); Hemoglobin 12.4 g/dL (13.0-16.5); Lymphocyte # 1.41 X10^3/ul (0.83-4.51); Mean Corp Hgb Conc 33.2 g/dL (32-36); Mean Corpuscular Hgb 32.5 pg (27.0-32.0); Mean Corpuscular Volume 97.6 fL (80-94); Mean Platelet Vol. 10.5 fl (6.2-12.0); Monocyte# 0.37 X10^3/uL; Monocyte% 11.8 % (0-10); NRBC Flagged by Analyzer 0 % (0-5); Neutrophil # 1.14 X10^3/uL (2.7-7.7); Neutrophil % 36.5 % (47-70); POSITIVE COUNT YES; Platelet Count 79 K/mm3 (150-450); RBC Distribution Width CV 14.1 % (11.6-14.6); RBC Distribution Width SD 50.4 fl (35.1-43.9); Red Blood Count 3.82 M/mm3 (4.6-6.2); White Blood Count 3.1 K/mm3 (4.4-11.0)
[2024-01-22 06:48] LABS: AST(SGOT) 33 U/L (15-37); Alanine Aminotransfer ALT/SGPT 34 U/L (16-61); Albumin, Serum 2.8 g/dL (3.2-5.0); Alkaline Phosphatase 88 U/L (45-117); Anion Gap 4 (5-15); BUN 12 mg/dL (7-18); BUN/Creat Ratio 15.5 RATIO (10-20); Bilirubin, Direct 0.45 mg/dL (0.00-0.30); Calcium,Total 8.7 mg/dL (8.5-10.1); Chloride 104 mmol/L (98-107); Creatinine, Serum 0.78 mg/dL (0.70-1.30); EST Glomerular Filtration Rate 106 mL/min (>60); Est Glom Filt Rate - Afr Amer 128 mL/min (>60); Estimated Creatinine Clearance 119.26 ml/min; Globulin 3.8 g/dL (2.2-4.2); Glucose 222 mg/dL (74-106); Potassium 3.5 mmol/L (3.5-5.1); Protein, Total 6.6 g/dL (6.4-8.2); Sodium Level 139 mmol/L (136-145)
[2024-01-22] MEDS: Insulin Lispro 100 UNIT/ML INSULN.PEN SC (07:23)
[2024-01-22] MEDS: Insulin Glargine-YFGN 100 UNIT/ML Pen 10 UNIT SC (07:24)
[2024-01-22 07:45] LABS: Bedside Glucose 218 mg/dL (74-106)
[2024-01-22 08:02] VITALS: PULSE 62
[2024-01-22] MEDS: Atorvastatin Calcium 40 MG Tablet PO (08:02)
[2024-01-22] MEDS: Metoprolol(XL)Succ 50 MG Tablet PO (08:02)
[2024-01-22] MEDS: APIXABAN 2.5 MG TABLET (WCH) PO (08:02)
[2024-01-22] MEDS: Thiamine Hydrochloride 100 MG Tablet PO (08:03)
[2024-01-22] MEDS: Furosemide 40 MG Tablet PO (08:03)
[2024-01-22] MEDS: Folic Acid 1 MG Tablet PO (08:03)
[2024-01-22] MEDS: Magnesium Chloride 64 MG Delay Rel.Tablet 128 MG PO (08:04)
[2024-01-22 08:05] VITALS: BP 120/81; PULSE 62; RESP 18; TEMP 36.4; O2SAT 96
--- NOTE | 2024-01-22 09:31 | ADDICTION ---
This public relations writer met with client for discharge instructions. Client is sitting up in chair. Laure and A/Mariaelena. Discussed treatment options [facility] vs. agency closer to home. Client would like to move forward with appt at [facility]. Assessment 01/25/24 at 8:30 am at main office ([address] [place] [address]). Contact information and 24 hour hotline number provided to client. He has transportation home with his sister transporting home. Copy of discharge planned bryson and provide to client.
--- NOTE | 2024-01-22 10:08 | DCINST_ITS ---
Discharge Instructions Diet Discharge Diet: 1800 Calorie Control Diet Activity Discharge Activity: Return to Normal Activity Weight Bearing Status: Full weight bearing Follow Up Care Test Results: Test results from this visit will be discussed in further detail at your follow- up appointment, if applicable. Discharge Plan Admission Admit Date/Time: 01/19/24 15:03 Primary Reason for Your Visit: Alcohol detox Attending Provider: Nilton Montoya Primary Care Provider: Care Physician,No Primary Consulting Providers: Abraham Napoles; Jude Acuna Instructions Additional Instructions / Restrictions: Follow-up with outpatient detox services as directed Discharge Orders/Prescriptions Prescriptions: Continued atorvastatin 40 mg tablet 40 mg PO QHS metoprolol succinate 50 mg tablet extended release 24 hr 50 mg PO BID metformin [Glumetza] 1,000 mg tablet,ER astrid.retention 24 hr 1,000 mg PO BID Eliquis 5 mg tablet 5 mg PO BID furosemide 40 mg tablet 40 mg PO DAILY PRN (Reason: FLUID RETENTION) glimepiride 4 mg tablet 4 mg PO BID folic acid 1 mg tablet 1 mg PO DAILY Referrals / Follow Up: Care Physician,No Primary [Primary Care Provider] - Disposition Disposition (needs filled in before D/C Order can be placed): Home, Self Care
--- NOTE | 2024-01-22 10:11 | PCM.DC.SUM ---
Providers Date of Admission: 01/19/24 Date of Discharge: 01/22/24 Primary Care Physician: No Primary Care Phys Reason For Visit: ACUTE ALCOHOL WITHDRAWAL SYNDROME Diagnosis Discharge Diagnosis (1) Acute hyperactive alcohol withdrawal delirium: Status: Acute Code(s): F10.931 - Alcohol use, unspecified with withdrawal delirium Plan 1. Acute alcohol withdrawal #2 chronic alcoholism #3 type 2 diabetes #4 chronic obstructive pulmonary disease #5 essential hypertension Medications at Discharge Home Medications apixaban 5 mg tablet (Eliquis) 5 mg PO BID BLOOD THINNER 01/19/24 atorvastatin 40 mg tablet 40 mg PO QHS CHOLESTEROL 01/19/24 folic acid 1 mg tablet 1 mg PO DAILY SUPPLEMENT 01/19/24 furosemide 40 mg tablet 40 mg PO DAILY PRN FLUID RETENTION 01/19/24 glimepiride 4 mg tablet 4 mg PO BID BLOOD SUGAR 01/19/24 metformin 1,000 mg 24 hr tablet,extended release (gastric reten.) (Glumetza) 1,000 mg PO BID BLOOD SUGAR 01/19/24 metoprolol succinate 50 mg tablet,extended release 24 hr 50 mg PO BID BLOOD PRESSURE 01/19/24 Hospital Course Operations None Procedures None Summary of Care Provided Minutes Spent on Discharge: 30 Hospital Course: This 68-year-old white male was seen in the emergency room at [facility] requesting services for alcohol detox, patient's talk screen was negative and his alcohol level was below 3. Patient admitted to minor symptoms of withdrawal, patient was admitted to [place] [id number], orders were entered using the alcohol detox order set, he was seen in consultation by addiction social worker. Patient opted not to do an inpatient detox program when he was discharged from the hospital, he had no major withdrawal symptoms during his hospitalization. On 01/22/2024, patient was seen and examined: On examination he appeared in good health and spirits. Vital signs as documented. Skin warm and dry and without overt rashes. Neck without JVD, neck was supple, trachea midline, thyroid was normal. Lungs clear bilaterally, normal air movement was noted. Heart exam notable for regular rhythm, normal sounds and absence of murmurs, rubs or gallops. Abdomen unremarkable and without evidence of organomegaly, masses, or abdominal aortic enlargement. Bowel sounds are present, abdomen is not distended. Extremities nonedematous, no cyanosis was noted, no clubbing was noted. Neuro: Cranial nerves II through XII are grossly intact, no focal motor deficits were noted, sensation to light touch and pinprick intact, motor exam 5/5 throughout. Psych: Patient is alert and oriented x3, he does not appear anxious or depressed, he does not appear agitated. Patient was discharged in stable condition on 01/22/2024 Weight / BMI Weight Weight: 115.212 kg Body Mass Index (BMI) 32.5 ABG / Lab / Microbiology Data 01/22/24 05:32 01/22/24 05:32 Laboratory: Laboratory Results - last 24 hr 01/21/24 13:38: POC Glucose 332 H 01/21/24 17:39: POC Glucose 360 H 01/21/24 21:48: POC Glucose 295 H 01/22/24 05:32: WBC 3.1 L, RBC 3.82 L, Hgb 12.4 L, Hct 37.3 L, MCV 97.6 H, MCH 32.5 H, MCHC 33.2, RDW Std Deviation 50.4 H, RDW Coeff of Abraham 14.1, Plt Count 79 L, MPV 10.5, Immature Gran % (Auto) 0.300, Neut % (Auto) 36.5 L, Lymph % (Auto) 45.0 H, [place] % (Auto) 11.8 H, Eos % (Auto) 5.1 H, Baso % (Auto) 1.3 H, Absolute Neuts (auto) 1.1 L, Absolute Lymphs (auto) 1.41, Nucleated RBC % 0, Sodium 139, Potassium 3.5, Chloride 104, Carbon Dioxide 31.0, Anion Gap 4 L, BUN 12, Creatinine 0.78, Estim Creat Clear Calc 119.26, Est GFR (MDRD) Af Amer 128, Est GFR (MDRD) Non-Af 106, BUN/Creatinine Ratio 15.5, Glucose 222 H, Calcium 8.7, Total Bilirubin 2.00 H, Direct Bilirubin 0.45 H, AST 33, ALT 34, Alkaline Phosphatase 88, Total Protein 6.6, Albumin 2.8 L, Globulin 3.8 01/22/24 07:22: POC Glucose 218 H D/C Instructions Discharge Diet: 1800 Calorie Control Diet Weight Bearing Status: Full weight bearing Meaningful Use Info Meaningful Use Diagnoses (Choose all that apply): None applicable Discharge Plan Admission Admit Date/Time: 01/19/24 15:03 Primary Reason for Your Visit: Alcohol detox Attending Provider: Nilton Montoya Primary Care Provider: Care Physician,No Primary Consulting Providers: Abraham Napoles; Jude Acuan Instructions Additional Instructions / Restrictions: Follow-up with outpatient detox services as directed Discharge Orders/Prescriptions Prescriptions: Continued atorvastatin 40 mg tablet 40 mg PO QHS metoprolol succinate 50 mg tablet extended release 24 hr 50 mg PO BID metformin [Glumetza] 1,000 mg tablet,ER astrid.retention 24 hr 1,000 mg PO BID Eliquis 5 mg tablet 5 mg PO BID furosemide 40 mg tablet 40 mg PO DAILY PRN (Reason: FLUID RETENTION) glimepiride 4 mg tablet 4 mg PO BID folic acid 1 mg tablet 1 mg PO DAILY Referrals / Follow Up: Care Physician,No Primary [Primary Care Provider] - Disposition Disposition (needs filled in before D/C Order can be placed): Home, Self Care
--- NOTE | 2024-01-22 10:36 | PHA.DC.MR.R ---
Pharmacy OR Med Reconciliation Pharmacy Service has performed discharge medication reconciliation for this patient. The patient's discharge medication list was reviewed for discrepancies and discrepancies were resolved. Medications at Discharge Home Medications apixaban 5 mg tablet (Eliquis) 5 mg PO BID BLOOD THINNER 01/19/24 atorvastatin 40 mg tablet 40 mg PO QHS CHOLESTEROL 01/19/24 folic acid 1 mg tablet 1 mg PO DAILY SUPPLEMENT 01/19/24 furosemide 40 mg tablet 40 mg PO DAILY PRN FLUID RETENTION 01/19/24 glimepiride 4 mg tablet 4 mg PO BID BLOOD SUGAR 01/19/24 metformin 1,000 mg 24 hr tablet,extended release (gastric reten.) (Glumetza) 1,000 mg PO BID BLOOD SUGAR 01/19/24 metoprolol succinate 50 mg tablet,extended release 24 hr 50 mg PO BID BLOOD PRESSURE 01/19/24
== END 2024-01-22 11:00 | disposition home or self-care (01) | DRG 897 ==
LOC: ED 15:12 → MS3 15:18
PROVIDERS: Internal Medicine; Physician Assistant; Admitting Provider Internal Medicine; Emergency Provider Emergency Medicine; Visit Provider Internal Medicine
DX: F10.231 Alcohol dependence with withdrawal delirium (principal); D61.818 Other pancytopenia; D69.6 Thrombocytopenia, unspecified; I11.0 Hypertensive heart disease with heart failure; E11.9 Type 2 diabetes mellitus without complications; K70.10 Alcoholic hepatitis without ascites; J44.9 Chronic obstructive pulmonary disease, unspecified; I50.9 Heart failure, unspecified; K74.60 Unspecified cirrhosis of liver; E78.5 Hyperlipidemia, unspecified; K76.0 Fatty (change of) liver, not elsewhere classified; G25.0 Essential tremor; Z95.2 Presence of prosthetic heart valve; Z79.01 Long term (current) use of anticoagulants; Z66 Do not resuscitate; Z86.711 Personal history of pulmonary embolism; Z87.891 Personal history of nicotine dependence; Z79.84 Long term (current) use of oral hypoglycemic drugs; Z51.5 Encounter for palliative care; Y90.0 Blood alcohol level of less than 20 mg/100 ml; Z86.718 Personal history of other venous thrombosis and embolism
CPT/HCPCS: 36415; 76705; 80048; 80053; 80076; 80307; 80320; 82248; 82607; 82746; 82962; 83735; 84100; 84484; 85025; 85610; 93005; 99284; A4216; G0480; J1940